=== PATIENT | female | born 1935 | race Caucasian/White ===

== ENCOUNTER 2016-05-03 13:00 | Day surgery (SDC) | payer MEDICARE ==
[~2016-05-03] VITALS: Ht 172.7 cm; Wt 97.0 kg
[~2016-05-03 13:00] MED LIST: 0.9% Sodium Chloride 1,000 ML IV SCH; AMLO5TAB2 PO; APIX5TAB PO; CHOL200047 PO; FISH12002 PO; FUR20 PO; LEVO100T45 PO; LOSA50TA37 PO; MULT-1018 PO; NPH,100I SUBQ; SIMV10TA4 PO; SOTA80TA PO; Sodium Chloride LOK Flush 10 mL Syringe IV PRN; fentaNYL-PF 50 mCg/mL 2 mL Inj IVPUSH PRN
[2016-05-03 13:12] VITALS: BP 169/81; PULSE 78; RESP 14; O2SAT 97
[2016-05-03 15:34] VITALS: BP 149/70; PULSE 56; RESP 16; O2SAT 99
[2016-05-03 15:44] VITALS: BP 145/59; PULSE 53; RESP 16; O2SAT 95
[2016-05-03 15:51] VITALS: BP 145/59; PULSE 52; RESP 12; O2SAT 96
--- NOTE | 2016-05-03 23:55 | ENDO ---
[address] [address] ENDOSCOPY PROCEDURE PATIENT: ERICK ENCISO : 1935 MR#: [id number] ADMIT: 05/03/2016 JOB ID: [id number] DATE OF PROCEDURE: 05/03/2016 PRIMARY PROVIDER: Naomi Lew PA-C. PROCEDURE: Colonoscopy with hot snare polypectomy, cold snare polypectomy and hot forceps polypectomy. INDICATIONS: An 80-year-old female with a personal history of colon polyps, overdue for colon cancer screening, polyp surveillance. EQUIPMENT: [employer] SEDATION: 1. Versed 2 mg. 2. Fentanyl 50 mcg. COMPLICATIONS: None identified. BOWEL PREPARATION: Fair, adequate exam. PROCEDURE INFORMATION: After the risks and benefits were explained, a written and verbal informed consent was obtained. The patient was brought into the endoscopy suite and placed into the left lateral decubitus position. Sedation was achieved as above. A digital rectal examination accomplished. No significant pathology appreciated apart from some mild to moderate internal hemorrhoids. The scope was introduced into the rectum and advanced under direct visualization to the level of the cecum, as identified by the appendiceal orifice and ileocecal valve. The scope was slowly withdrawn to carefully examine the mucosa for any defects or lesions. Multiple direct views were made through the dentate line for exclusion of pathology. The colon was decompressed. The scope was removed from the patient, who tolerated the procedure well. FINDINGS: Throughout the colon there were 10 polyps removed with hot snare, two with cold snare and one in the rectum ultimately with hot forceps. The largest of these polyps was in the transverse colon and measured approximately 11-12 mm. This was the only one that could not be aspirated through the accessory channel prior to sectioning the polyp with the snare. The patient had moderate diverticulosis in the left colon. On the way back we noticed one of the polypectomy sites had a small amount of oozing of red blood and we applied a single resolution clip for hemostasis. This polyp was somewhere in the transverse colon. ENDOSCOPIC DIAGNOSES: 1. Multiple colon polyps. 2. Diverticulosis. 3. Hemorrhoids. RECOMMENDATIONS: 1. Await histopathology. 2. Repeat colonoscopy in one year. 3. The patient is encouraged to hold off on restarting Eliquis for ideally 5-7 days from now.
--- NOTE | 2016-05-07 10:09 | PATH ---
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 ICD10 CODE D12.6 GROSS DESCRIPTION: The specimen is sublabeled "colon polyps" and consists of multiple portions of tissue which aggregate to 1.6 x 0.9 x 0.4 CM. The specimen is filtered and entirely submitted in one cassette. 05/04/2016 DAC MICRO DESCRIPTION: See diagnosis. ICD-9 CODES: CPT CODES: 1: 24641 Electronically Signed Out Irving Sky MD [facility] [address], [place] [address] Technical component performed at [facility], [facility] [address], [address]
== END 2016-05-03 23:59 | disposition home or self-care (01) ==
LOC: END 13:00
PROVIDERS: ATTEND Internal Medicine Gastroenterology
DX: Z12.11 Encounter for screening for malignant neoplasm of colon (principal); Z86.010 Personal history of colon polyps; D12.6 Benign neoplasm of colon, unspecified; K57.30 Diverticulosis of large intestine without perforation or abscess without bleeding; K64.9 Unspecified hemorrhoids; E11.9 Type 2 diabetes mellitus without complications; Z79.4 Long term (current) use of insulin; I48.2 Chronic atrial fibrillation; I10 Essential (primary) hypertension
CPT/HCPCS: 45384; 45385; 99153; G0500; J2250; J3010; J7030